=== PATIENT | male | born 1975 | race African-American/Black ===

== ENCOUNTER 2023-10-13 07:40 | Emergency (ER) | payer OTHER ==
[2023-10-13 07:45] VITALS: BP 134/78; PULSE 68; RESP 20; TEMP 97.8; BMI 26.4
[2023-10-13] MEDS ORDERED: KETOROLAC TROMETHAMINE 30 MG/1 ML VIAL IM ONE (08:03)
[2023-10-13] MEDS ORDERED: METHOCARBAMOL 500 MG TABLET PO ONE (08:03)
[2023-10-13] MEDS ORDERED: LIDOCAINE 5% TOPICAL PATCH TP ONE (08:06)
[2023-10-13] MEDS ORDERED: METHOCARBAMOL 500 MG TABLET ONE (08:10)
[2023-10-13] MEDS ORDERED: LIDOCAINE 4% PATCH TP ONE (08:10)
[2023-10-13] MEDS ORDERED: KETOROLAC TROMETHAMINE 30 MG/1 ML VIAL ONE (08:11)
[2023-10-13] MEDS ORDERED: ACETAMINOPHEN 500 MG TABLET (FP) ONE (08:12)
[2023-10-13] MEDS ORDERED: ACETAMINOPHEN 500 MG TABLET (FP) PO ONE (08:25)
[2023-10-13] MEDS ORDERED: LIDOCAINE PATCH REMOVAL MC SCH (22:00)
== END 2023-10-13 08:54 | disposition home or self-care (01) ==
LOC: JER 07:40
DX: S46.811A Strain of other muscles, fascia and tendons at shoulder and upper arm level, right arm, initial encounter (principal); G89.29 Other chronic pain; M25.511 Pain in right shoulder; X50.9XXA Other and unspecified overexertion or strenuous movements or postures, initial encounter; Y93.9 Activity, unspecified; Y92.9 Unspecified place or not applicable
CPT/HCPCS: 99283-25

== ENCOUNTER 2023-11-26 08:10 | Emergency (ER) | payer OTHER ==
[2023-11-26 08:21] VITALS: BP 150/97; PULSE 69; RESP 17; TEMP 97.7; BMI 26.4
[2023-11-26] MEDS ORDERED: IBUPROFEN 600 MG TABLET (FP) PO ONE ×2 (09:28→09:30)
[2023-11-26] MEDS ORDERED: CYCLOBENZAPRINE HCL 10 MG TABLET (FP) PO ONE (09:28)
[2023-11-26] MEDS ORDERED: CYCLOBENZAPRINE HCL 10 MG TABLET (FP) ONE (09:30)
== END 2023-11-26 10:41 | disposition home or self-care (01) ==
LOC: JERFT 08:10
DX: S83.421A Sprain of lateral collateral ligament of right knee, initial encounter (principal); M25.561 Pain in right knee; X58.XXXA Exposure to other specified factors, initial encounter
CPT/HCPCS: 73562-TC-RT-FY; 99283-25

== ENCOUNTER 2024-07-11 11:37 | Emergency (ER) | payer OTHER ==
[2024-07-11 12:01] VITALS: BP 164/83; PULSE 74; RESP 17; TEMP 97.3; BMI 26.9
== END 2024-07-11 12:54 | disposition home or self-care (01) ==
LOC: JERFT 11:37
DX: R22.0 Localized swelling, mass and lump, head (principal); K04.7 Periapical abscess without sinus
CPT/HCPCS: 99283-25